=== PATIENT | female | born 1940 | race Caucasian/White ===

== ENCOUNTER 2016-12-11 17:52 | Emergency (ER) | payer MEDICARE, OTHER ==
--- NOTE | ~2016-12-11 | CR72 ---
[facility] A Service of [facility] & [facility] RADIOLOGY TEXT RESULTS PATIENT: ARCENIO MCKEON LOCATION: [facility] : 41 UNIT #: [id number] AGE: [address]: Jose Galeas MD SEX: F ORDER DR: [id number] [facility] [address] [place], [place] [address] [id number] MR#: [id number] Acc #: [id number] NAME: ARCENIO MCKEON. : 1940 SEX: F STUDY DATE/TIME: 12/11/2016 17:29 UNIT: [facility] ROOM: STUDY DESCRIPTION: CR Chest Single View Portable Attending Physician: Jose Galeas M.D. Ordering Physician: Jose Galeas M.D. Primary Care Physician: Onel Toro Jr., M.D. MEDICAL IMAGING REPORT This report is preliminary unless electronic signature is present EXAM Portable chest x-ray, 12/11/2016. HISTORY Chest pain, back pain, weakness, short of air, headache. Began today. Weakness. FINDINGS AP right anterior oblique view of the chest is presented. Comparison 02/18/2016. Study is somewhat limited secondary to the patient's very large body habitus. Marked degenerative changes in the bilateral shoulders. No acute-appearing bony abnormality. Stable cardiac enlargement. The patient's cardiac pacemaker is unchanged. The lungs are well inflated. Mild pulmonary vascular prominence suggesting vascular congestion. This is a new finding. There are some linear areas of scarring in the left mid lung zone. There is no clear indication of lilia pulmonary edema at this time. No indication of pneumonia, pleural effusion, pneumothorax or suspicious nodule. Partially visualized lap-band device grossly unchanged from prior studies given obliquity. Dictated by... Guilherme Anaya M.D. THIS IS AN ELECTRONICALLY VERIFIED REPORT Guilherme Anaya M.D. at 12/12/2016 2:18 PM MARCE/zunilda TD: 12/12/2016 10:03 JOB #: [id number] MEDICAL IMAGING REPORT Page 1 of 1 COPY
--- NOTE | ~2016-12-11 | EKG ---
PATIENT: ARCENIO MCKEON UNIT #: [id number] Ventricular Rate: 69 BPM Atrial Rate: 69 BPM P-R Interval: 222 ms QRS Duration: 122 ms Q-T Interval: 412 ms QTC Calculation(Bezet): 441 ms P York: 54 degrees Calculated R York: -46 degrees Calculated T York: 16 degrees Diagnosis Line: Atrial-paced rhythm with prolonged AV conduction Diagnosis Line: Left anterior fascicular block Baseline wander Diagnosis Line: Abnormal ECG Diagnosis Line: When compared with ECG of 18-FEB-2016 17:03, Diagnosis Line: QT has shortened Diagnosis Line: Confirmed by LUIS CHUA MD ([id number]) on 12/13/2016 Diagnosis Line: 9:14:42 AM INTERPRETING MD: TOMA BURRIS
[~2016-12-11 17:52] MED LIST: ACCUPRIL PO; ACCURETIC 10-121 TAB PO; ACETAMINOPHEN PO; ACTOS PO; ACTOS15 MG; ACTOS30 MG PO; ALLERGY25 MG PO; ALLOPURINOL300 MG PO; ALPRAZOLAM PO; ANAFRANIL50 MG PO; APAP325 M1 PO; ARICEPT PO; ASPIRIN EC81 M1 PO; ATARAX PO; ATENOLOL PO; ATIVAN PO; ATRAC-TAIN142 GM EXT; AUGMENTIN PO; BACITRACIN3.5 GM AD; BACLOFEN10 MG PO; BACTROBAN22 GM TP; BENADRYL25 M1 PO; BUMEX PO; CARVEDILOL3.125 MG PO; CECLOR PO; CLARITIN10 MG PO; CLEOCIN HCL300 M1 PO; CLOBEVATE45 GM TOP; COLACE PO; CORDARONE200 M1; CORDARONE200 M1 PO; COREG3.125 M1 PO; COREG3.125 MG; COUMADIN PO; COUMADIN2.5 MG PO; COUMADIN4 MG; COUMADIN4 MG PO; COUMADIN5 MG PO; CYANOCOBALAMI100 MCG PO; DESENEX TP; DESITIN DIAPER113 GM TOP; DETROL LA PO; DIFLUCAN200 MG PO; DIOVAN160 MG PO; DIOVAN320 MG PO; DITROPAN PO; DITROPAN5 MG PO; DOXYCYCLINE PO; DUONEB 2.5-0.5 M3 ML NEB; ENABLEX7.5 MG; ENABLEX7.5 MG PO; FERROUS SULFATE PO; FLORASTOR250 M1 PO; FOLIC ACID PO; FUROSEMIDE40 MG PO; GLIMEPIRIDE1 M1 PO; GLUCOTROL PO; HCTZ PO; HYDRALAZINE HCL50 MG PO; HYDROCHLOROTH12.5 M1 PO; HYDROCHLOROTH12.5 MG PO; KEFLEX PO; LASIX PO; LASIX20 MG PO; LEVAQUIN250 MG PO; LEVOCETIRIZINE D5 MG PO; LIPITOR20 MG DOB; LIPITOR20 MG PO; LISINOPRIL PO; LOTRIMIN30 GM TOP; LOTRISONE CREAM45 GM TOP; MELATONIN 5 MG1 EACH PO; MILK OF MAGNESIA PO; MOTION SICKNESS25 M4 PO; NEURONTIN PO; NEURONTIN100 MG PO; NORVASC PO; NORVASC10 MG PO; NYSTATIN1 EAC1 MC; OMEPRAZOLE MAGN20 MG PO; OMEPRAZOLE20 M2 PO; OMEPRAZOLE40 MG; OMEPRAZOLE40 MG PO; PATIENT'S PHARMACY; PERCOCET 7.5-31 EACH PO; PHENERGAN PO; PHOSLO667 MG PO; PIOGLITAZONE15 MG PO; POLYSACC IRON150 MG PO; PRILOSEC20 M1 PO; SERTRALINE HCL50 M1; SERTRALINE HCL50 M1 PO; SERTRALINE HCL50 MG PO; SIMVASTATIN20 MG PO; SKELAXIN PO; STOOL SOFTENER100 M1 PO; SYNTHROID PO; TRYPSIN COMPLEX60 GM TP; VICODIN PO; WARFARIN SODIU7.5 MG PO; WARFARIN SODIUM4 M1 PO; XARELTO15 MG PO; ZEMPLAR1 MCG; ZEMPLAR1 MCG PO; ZOCOR PO; ZOCOR20 MG PO; ZOLOFT PO; ZOLOFT50 MG PO; ZYLOPRIM PO; ZYLOPRIM100 MG; ZYLOPRIM100 MG DOB; ZYLOPRIM100 MG PO; [UNRECOGNIZED DRUG - OTHER]; [UNRECOGNIZED DRUG - OTHER] TP
[2016-12-11 17:55] LABS: BASOPHIL# 0.1 X10e3 (0-0.3); BASOPHIL% 0.8 % (0-2.5); DIFF IND YES; EOSINOPHIL# 0.4 X10e3 (0-0.7); EOSINOPHIL% 4.9 % (0.0-7.0); HEMATOCRIT 32.6 % (35.0-45.0); HEMOGLOBIN 10.6 gm/dL (12.0-16.0); LYMPHOCYTE# 1.5 X10e3 (1.0-3.5); LYMPHOCYTE% 20.1 % (17.0-45.0); MEAN CELL VOLUME 106.3 FL (83-96); MEAN CORPUSCULAR HEMOGLOBIN 34.6 PG (28-34); MEAN CORPUSCULAR HGB CONC 32.6 g/dL (30-36); MEAN PLATELET VOLUME 7.9 FL (6.5-11.5); MONOCYTE# 0.5 X10e3 (0-1.0); MONOCYTE% 6.6 % (3.0-12.0); NEUTROPHIL% 67.6 % (40-75); PLATELET COUNT 210 X10e3 (140-420); RED BLOOD COUNT 3.07 X10e (3.90-5.30); WHITE BLOOD COUNT 7.4 X10e3 (4.0-10.5)
[2016-12-11 17:58] LABS: POC - CKMB 1.6 ng/mL (0.0-7.9); POC - TROPONIN <0.05 ng/mL (<=0.05)
[2016-12-11 18:03] LABS: PROTHROMBIN TIME (PATIENT) 10.3 SECONDS (9.6-11.5)
[2016-12-11 18:10] LABS: ALBUMIN SERUM 2.8 g/dL (3.5-5.0); ALKALINE PHOSPHATASE 79 U/L (32-92); ALT (SGPT) 13 U/L (10-40); AST (SGOT) 20 U/L (10-42); BILIRUBIN,TOTAL 0.4 mg/dL (0.2-2.0); BLOOD UREA NITROGEN 49 mg/dL (9-23); BUN/CREATININE RATIO 23.33; CALCIUM SERUM 9.1 mg/dL (8.4-10.2); CARBON DIOXIDE 23 mmol/L (22-31); CHLORIDE 104 mmol/L (100-111); CREATININE SERUM 2.1 mg/dL (0.6-1.4); GLOM FILT RATE Estimated 24.4 mL/min (>60); GLUCOSE FASTING 152 mg/dL (70-110); POTASSIUM 4.8 mmol/L (3.5-5.1); PROTEIN TOTAL SERUM 7.1 g/dL (6.0-8.3); SODIUM 134 mmol/L (135-145)
[2016-12-11 18:12] LABS: BILIRUBIN, DIRECT <0.1 mg/dL (0.0-0.2); BILIRUBIN,INDIRECT 0.3 mg/dL (0.0-0.9)
[2016-12-11 18:17] LABS: ANISOCYTOSIS SL; PLATELET ESTIMATE NORMAL (NORMAL); POIKILOCYTOSIS SL
[2016-12-11 19:27] LABS: POC - CKMB 1.2 ng/mL (0.0-7.9); POC - TROPONIN <0.05 ng/mL (<=0.05)
== END 2016-12-11 21:17 | disposition home or self-care (01) ==
LOC: CED 17:52
PROVIDERS: Emergency Medicine
DX: R07.89 Other chest pain (principal); Z95.1 Presence of aortocoronary bypass graft; Z87.440 Personal history of urinary (tract) infections; Z88.2 Allergy status to sulfonamides
CPT/HCPCS: 36415; 71010; 80048; 80076; 82553; 84484; 85025; 85610; 93005; 99284

== ENCOUNTER 2017-01-30 14:07 | Inpatient (IN) | payer MEDICARE, OTHER ==
--- NOTE | ~2017-01-30 | EKG ---
PATIENT: ARCENIO MCKEON UNIT #: [id number] Ventricular Rate: 73 BPM Atrial Rate: 73 BPM P-R Interval: 190 ms QRS Duration: 112 ms Q-T Interval: 424 ms QTC Calculation(Bezet): 467 ms P Philo: 75 degrees Calculated R Philo: -56 degrees Calculated T Philo: 29 degrees Diagnosis Line: Sinus rhythm Baseline wander Diagnosis Line: Left anterior fascicular block Diagnosis Line: Minimal voltage criteria for LVH, may be normal Diagnosis Line: variant Diagnosis Line: Abnormal ECG Diagnosis Line: When compared with ECG of 11-DEC-2016 15:50, Diagnosis Line: No significant change was found Diagnosis Line: Confirmed by LUIS CHUA MD ([id number]) on 01/31/2017 Diagnosis Line: 10:01:55 AM INTERPRETING MD: TOMA BURRIS
--- NOTE | ~2017-01-30 | HP ---
Unit #: [id number] #: [id number] Patient: ARCENIO MCKEON [id number] [address] [place], [place] [address] [id number] I MR#: [id number] NAME: ARCENIO MCKEON. ROOM: 319 Age: 76 Sex: F Admission Date: 01/30/2017 : 1940 Attending Physician: Nury Chase M.D. Primary Care Physician: Onel Toro Jr., M.D. HISTORY AND PHYSICAL REVISED REPORT CHIEF COMPLAINT Possible UTI. HISTORY OF PRESENT ILLNESS The patient is a 76-year-old female with a past medical history of multiple medical problems including chronic kidney disease, hypertension, atrial fibrillation, chronic anticoagulation, hypothyroidism, diabetes, chronic anemia, sick sinus syndrome, chronic back pain, obstructive sleep apnea, immobility, GERD, anxiety, depression, dementia, and morbid obesity, who presented to the emergency department from the snf for evaluation of the above. History is obtained from chart review and discussion with ER staff due to the patient's altered mental status. Apparently, the patient was brought to the emergency department from the snf for altered mental status. The nurse practitioner that evaluated the patient today at the snf thought that the patient "wasn't herself" and wanted her evaluated. This is per ER discussion with EMS. Per snf documentation, she was unable to follow commands and noted to have difficulty with word finding. It is unclear what her baseline mental status is. She does have dementia. Upon arrival in the emergency department, temperature was 98, pulse 76, respirations 16, blood pressure 160/70, and oxygen saturation 99% on room air. Laboratory is notable for findings concerning for urinary tract infection. She was given Zosyn in the emergency department. A CT of the head showed nothing acute. Chest x-ray showed nothing acute. She is being admitted to [facility] for evaluation and further treatment. PAST MEDICAL HISTORY 1. Admission to [facility] February 18, 2016, for altered mental status secondary to a urinary tract infection with Klebsiella pneumoniae that was resistant to ampicillin but otherwise pansensitive. 2. Chronic kidney disease stage 3. The patient has seen Dr. Ortiz in the past. 3. Hypertension. 4. Atrial fibrillation, on chronic anticoagulation with Xarelto. 5. Hypothyroidism. 6. Diabetes. 7. Chronic anemia. Unit #: [id number] #: [id number] Patient: ARCENIO MCKEON 8. Sick sinus syndrome. 9. Chronic back pain. 10. Obstructive sleep apnea. 11. Immobility. 12. Gastroesophageal reflux disease. 13. Anxiety and depression. 14. Dementia. 15. Morbid obesity with a BMI of 53. PAST SURGICAL HISTORY 1. Failed Lap-Band surgery. 2. Cholecystectomy. 3. Pacemaker placement. 4. Cataract surgery. 5. Skin graft. SOCIAL HISTORY The patient is at a snf. Her code status is a Full Code per snf documentation. Per record review, there is no tobacco or alcohol use. FAMILY HISTORY Notable for hypertension, stroke, diabetes, and breast cancer. ALLERGIES Rocephin, sulfamethoxazole, and trimethoprim. HOME MEDICATIONS 1. Synthroid. 2. Clomipramine. 3. Coreg. 4. Zyloprim. 5. Xarelto. 6. Lorazepam. 7. Amiodarone. 8. Zemplar. 9. Ditropan. 10. Aricept. 11. Percocet. 12. Cyanocobalamin. 13. Tylenol. 14. Artificial Tears. 15. Vitamin C. 16. Colace. 17. DuoNebs. 18. Lasix. 19. Levocetirizine. 20. Melatonin. 21. Nystatin cream. 22. Omeprazole. 23. Pataday drops. 24. Iron. 25. Potassium. 26. Senna. 27. Benzonatate. 28. Tizanidine. 29. Ondansetron. 30. Hydralazine. Unit #: [id number] #: [id number] Patient: ARCENIO MCKEON Home medications will need to be reviewed and verified. REVIEW OF SYSTEMS A complete review of systems is unobtainable from the patient due to altered mental status. PHYSICAL EXAMINATION VITAL SIGNS: Temperature is 98, pulse 76, respirations 16, blood pressure 160/70, and oxygen saturation 99% on room air. GENERAL: Patient is a female who is awake, alert, and somewhat agitated. HEENT: Head is atraumatic. Mucous membranes are dry. NECK: Supple. Trachea is midline. CARDIOVASCULAR: Regular rate and rhythm. LUNGS: Clear to auscultation bilaterally with no increased work of breathing. ABDOMEN: Obese, soft, and nontender with bowel sounds present in all four quadrants. EXTREMITIES: Scattered contusions. No edema. NEUROLOGIC: Patient is moving all extremities. She does not follow commands. PSYCHIATRIC: Patient is agitated. SKIN: Scattered contusions. DIAGNOSTIC STUDIES LABORATORY: Complete blood count notable for MCV of 104.8. INR is 1. Ammonia level is less than 9. Urinalysis notable for 1+ leukocyte esterase, 2+ protein, 25-50 white blood cells, and 4+ bacteria with no squamous cells. Urine toxicology screen is positive for tricyclics. Comprehensive metabolic panel notable for glucose of 183, BUN and creatinine 32 and 1.4, respectively, and albumin is 3.2. Tylenol, salicylate, and alcohol levels are negative. IMAGING: CT of the head shows nothing acute. There is a left nasopharyngeal polyp. Chest x-ray shows nothing acute. CARDIOLOGY: EKG shows atrial paced rhythm with a rate of 73 beats per minute. ASSESSMENT The patient is a 76-year-old female with: 1. Altered mental status. 2. Urinary tract infection. Review of [facility] records shows that the patient had a urine culture from February 18, 2016, that grew greater than 100,000 Klebsiella that was resistant only to ampicillin. She had a urine culture on December 05, 2012, that grew greater than 100,000 Escherichia coli that was resistant to Bactrim, ampicillin, Levaquin, and tetracycline. She has also had enterococcus in the past on November 18, 2012. She received Zosyn in the emergency department. 3. Chronic kidney disease stage 3 with a creatinine of 2.1 on December 11, 2016. It is 1.4 today. She has seen Dr. Ortiz in the past. 4. Hypertension. 5. Atrial fibrillation, on chronic coagulation with Xarelto. 6. Hypothyroidism. 7. Diabetes. 8. Chronic anemia. 9. Sick sinus syndrome. Unit #: [id number] #: [id number] Patient: ARCENIO MCKEON 10. Chronic back pain. 11. Obstructive sleep apnea. 12. Immobility. 13. Gastroesophageal reflux disease. 14. Anxiety and depression. 15. Dementia. 16. Morbid obesity with a body mass index of 53 present on admission. 17. Left nasopharyngeal polyp noted on head CT. The patient will need ENT followup as an outpatient. PLAN 1. Admit for observation to intermediate level. 2. N.p.o. until speech evaluation. 3. Speech Therapy to evaluate and treat. 4. Normal saline at 75 mL/hour. 5. TSH, B12, and folate. 6. Neuro checks. 7. Fall precautions. 8. Bedrest. 9. Blood cultures x2. 10. Urine culture and sensitivity on urine in the lab. 11. Levaquin IV for urinary tract infection pending results of culture. 12. Hemoglobin A1c. 13. Low-dose sliding scale insulin with Accu-Cheks. 14. Supplemental oxygen. 15. Repeat labs in the morning. 16. Additional workup and consultants based on above. 17. Regarding code status, the patient is a Full Code. ORIGINAL JOB [id number] CORRECTIONS: CT of the head was negative. I spoke in error when I said that there was a left nasopharyngeal polyp. So please note that the CT of the head showed nothing acute. Additional, correction under assessment. There is no left nasopharyngeal polyp. The patient does not need to follow up ENT. That was an error." Dictated by Jeannie Ochoa/sahil TD: 01/30/2017 20:41 JOB #: [id number] [facility] Unit #: [id number] #: [id number] Patient: ARCENIO MCKEON HISTORY AND PHYSICAL Page 1 of 1 X Nury Chase MD HISTORY AND PHYSICAL
--- NOTE | ~2017-01-30 | XA166 ---
[facility] A Service of [facility] & [facility] RADIOLOGY TEXT RESULTS PATIENT: ARCENIO MCKEON LOCATION: [facility] 319-01 : 41 UNIT #: [id number] AGE: [address]: Cruzito Jarrett MD SEX: F ORDER DR: [id number] [facility] [address] [place], [place] [address] [id number] I MR#: [id number] Acc #: [id number] NAME: ARCENIO MCKEON. : 1940 SEX: F STUDY DATE/TIME: 01/31/2017 10:07 UNIT: A U ROOM: 319 STUDY DESCRIPTION: XA PICC Line Placement WO Port Attending Physician: Cruzito Jarrett M.D. Ordering Physician: Nury Chase M.D. Primary Care Physician: Onel Toro Jr., M.D. MEDICAL IMAGING REPORT This report is preliminary unless electronic signature is present EXAM Right-sided PICC line placement INDICATION Need for IV access in a patient with the history of encephalopathy. PROCEDURE The procedure was explained to the patient's petroleum products sales representative including risks, benefits, potential complications, and potential for alternative forms of treatment. Informed consent was obtained and prior to initiating the procedure, a formal timeout procedure was performed. Using all elements of maximal sterile barrier technique, including hand hygiene, caps, sterile gowns, gloves and masks, the right arm was prepped with 2% Chlorhexidine for cutaneous antisepsis and covered with a large sterile sheet. Real-time sterile ultrasound guidance was used to localize the right basilic vein which was found to be patent and compressible. A hard copy ultrasound image was obtained. After local anesthesia with 1% Xylocaine, the vein was punctured using real-time sterile ultrasound guidance and an 0.018 guidewire was advanced into the superior vena cava under fluoroscopic guidance. Sheath was advanced over the wire. The catheter was measured and trimmed and was advanced over the wire and positioned into the superior vena cava. Following placement of the catheter, it flushed and aspirated easily. Total fluoroscopy time was 0.2 minutes, AK was 3 mGy. Please note this exam was performed with conscious sedation due to this patient's severe agitation. She did receive conscious sedation consisting of 0.5 mg of Versed and 25 mcg of Fentanyl and continuous monitoring was provided for a total of 25 minutes by the IVR nurse. IMPRESSION Successful placement of a right-sided PICC line which terminates within the superior vena cava. This catheter is ready for immediate use. [facility] A Service of [facility] RADIOLOGY TEXT RESULTS PATIENT: ARCENIO MCKEON LOCATION: [facility] 319-01 : 41 UNIT #: [id number] AGE: [address]: Cruzito Jarrett MD SEX: F ORDER DR: Ultrasound and fluoroscopy were used during placement of the catheter and permanent images were saved. Dictated by... Carla Curtis M.D. THIS IS AN ELECTRONICALLY VERIFIED REPORT Carla Curtis M.D. at 02/01/2017 10:03 AM AFF/aa TD: 02/01/2017 08:45 JOB #: [id number] MEDICAL IMAGING REPORT Page 1 of 1 COPY
--- NOTE | ~2017-01-30 | CO ---
Unit #: [id number] #: [id number] Patient: ARCENIO MCKEON [id number] [address] [place], [place] [address] [id number] I MR#: [id number] NAME: ARCENIO MCKEON. ROOM: 319 Age: 76 Sex: F Admission Date: 02/02/2017 : 1940 Attending Physician: Cruzito Jarrett M.D. Primary Care Physician: Onel Toro Jr., M.D. CONSULTATION REPORT CHIEF COMPLAINT Urinary retention. CONSULTING PHYSICIAN Dr. Nury Chase HISTORY OF PRESENT ILLNESS The patient is a 76-year-old female with extensive multiple medical problems and is a long term patient. She has had a history of recurring urinary tract infection. She has an indwelling urethral catheter which has been in for quite some time. On questioning, probably some sort of catheter for six months to a year. She presented with confusion and mental status changes. She has been found to have an E. coli urinary tract infection. Catheter apparently was traumatically removed earlier today and the nursing staff was unable to place a catheter. I was called to assist with catheter placement. PAST MEDICAL HISTORY 1. Morbid obesity. 2. Chronic kidney disease. 3. Hypertension. 4. Atrial fibrillation. 5. Chronic anemia. 6. Sick sinus syndrome. 7. Immobility syndrome. 8. Obstructive sleep apnea. PAST SURGICAL HISTORY 1. Pacemaker. 2. Cholecystectomy. 3. Lap band. 4. Cataract surgery. 5. Skin graft. SOCIAL HISTORY snf patient. No tobacco. Negative for alcohol. FAMILY HISTORY Hypertension, stroke, diabetes, breast cancer. MEDICATIONS/ALLERGIES Documented in the chart. REVIEW OF SYSTEMS Unit #: [id number] #: [id number] Patient: ARCENIO MCKEON Twelve point review of systems was performed. It is positive for urinary incontinence, decreased mobility. PHYSICAL EXAMINATION GENERAL: Morbidly obese female in no acute distress. She is alert and oriented x4. Family members at the bedside. VITAL SIGNS: Temperature 97.8. HEENT: Normocephalic, atraumatic. NECK: Supple. No lymphadenopathy. CHEST: The patient is breathing comfortably. There is symmetric chest rise. ABDOMEN: Soft, nontender, nondistended. EXTREMITIES: There is 2+ bilateral lower extremity edema. EXAM: On exam, she has completely eroded urethra. I placed a 16 Welsh Lopez catheter. DIAGNOSTIC STUDIES LABORATORY: Creatinine 1.7. 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 The options for this are very limited. We can place a suprapubic tube but she will probably still leak and she is high risk for this surgery given her obesity and this will not reduce her risk of urinary tract infection. The other option would be to remove the catheter and let her leak into a diaper but there are concerns about her pressure ulcers and the status from this. She is not a candidate for more complex diversion surgery. We will treat her urinary tract infection and consider suprapubic tube in the future if she were medically cleared but, again, this will be a very high risk procedure with uncertain benefit. Dictated by... Wellington Jennings M.D. MEME/rufino TD: 02/03/2017 12:38 JOB #: [id number] CONSULTATION REPORT Page 1 of 1 X Wellington Jennings MD X CONSULTATION REPORT
--- NOTE | ~2017-01-30 | CO ---
Unit #: [id number] #: [id number] Patient: ARCENIO PAIZ [id number] [address] [place], [place] [address] [id number] I MR#: [id number] NAME: ARCENIO PAIZ. ROOM: 319 Age: 76 Sex: F Admission Date: 02/02/2017 : 1940 Attending Physician: Cruzito Jarrett M.D. Primary Care Physician: Onel Toro Jr., M.D. CONSULTATION REPORT CHIEF COMPLAINT Confusion. HISTORY OF PRESENT ILLNESS Ms. Paiz is a 76-year-old lady, with history of dementia, who was admitted for mental status change. Apparently, she is fully conversant at baseline, but was found to be poorly responsive, confused at the shelter. Her urinary tract infection has since been treated, but the patient continues to be confused, tremulous, and disoriented. She also appears to have some hallucination. REVIEW OF SYSTEMS GENERAL: Positive for overall decline. SKIN: Negative. HEENT: Negative. PULMONARY: Negative. CARDIOVASCULAR: Positive for irregular heart beat. GI: Negative. : Positive for urinary tract infection. MUSCULOSKELETAL: Positive for joint pain. NEUROLOGIC: Positive for confusion. PSYCHIATRIC: Positive for hallucination. PAST MEDICAL HISTORY Positive for dementia, atrial fibrillation, hypertension, chronic renal insufficiency, hypothyroidism, diabetes, chronic anemia, sick sinus syndrome status post pacemaker placement, chronic low back pain, morbid obesity, obstructive sleep apnea, anxiety, and depression. SOCIAL HISTORY Negative for tobacco, alcohol, or illicit drugs. FAMILY HISTORY Per son, it is positive for the patient's mother having a stroke. PHYSICAL EXAMINATION GENERAL: Upon examination, she is of anxious appearance. CARDIOVASCULAR: Her heart sounds are irregular. There are no carotid bruits. PULMONARY: Lungs taylor are clear. EXTREMITIES: There is mild peripheral edema. VITAL SIGNS: Blood pressure is 134/47, pulse is 141, respirations 20, temperature is 99.9. NEUROLOGIC: She is alert and oriented x1. Language fluency is intact. Unit #: [id number] #: [id number] Patient: ARCENIO PAIZ She does follow simple commands. Memory and attention span are impaired. Fund of knowledge is below average. Her visual taylor are full. There is no papilledema. Extraocular muscles are intact. Pupils are equal, round, and reactive to light. There is no facial weakness or numbness. Hearing to conversation speech is normal. Palate elevates symmetrically. Trapezius midline. There is no dysarthria or dysphasia. She has 4+ strength throughout. Muscle tone and bulk are normal. She does have whole body fast tremors. There are no sensory deficits. She is unable to perform any coordinated movements. Unable to ambulate and is areflexic throughout. IMAGING STUDIES I have personally reviewed her head CT and it shows mild diffuse atrophy and chronic small vessel ischemic disease, but no acute findings. ASSESSMENT AND PLAN In summary, Ms. Wright has had mental status changes in association with urinary tract infection. Her clinical picture is mostly consistent with a toxic metabolic encephalopathy; however, she does have a history of hypothyroidism and we will therefore check a TSH and free T4. We will also check B12 and folate levels. Psych evaluation should be considered to address the patient's psychosis. Further recommendations will be as per test results. Dictated by... Jeannie Curtis/nasir TD: 02/02/2017 14:47 JOB #: [id number] CONSULTATION REPORT Page 1 of 1 X Marielle Aburto MD CONSULTATION REPORT
--- NOTE | ~2017-01-30 | CR72 ---
[facility] A Service of [facility] & [facility] RADIOLOGY TEXT RESULTS PATIENT: ARCENIO MCKEON LOCATION: [facility] 319-01 : 41 UNIT #: [id number] AGE: [address]: Cruzito Jarrett MD SEX: F ORDER DR: [id number] [facility] [address] [place], [place] [address] [id number] E MR#: [id number] Acc #: [id number] NAME: ARCENIO MCKEON : 1940 SEX: F STUDY DATE/TIME: 01/30/2017 14:46 UNIT: RAGHU ROOM: STUDY DESCRIPTION: CR Chest Single View Portable Attending Physician: Pierre Nguyen D.O. Ordering Physician: Pierre Nguyen D.O. Primary Care Physician: Onel Toro Jr., M.D. MEDICAL IMAGING REPORT This report is preliminary unless electronic signature is present EXAM Portable chest 01/30 HISTORY Shortness of air today with mental status changes and UTI. TECHNIQUE AP portable view of the chest is compared with 12/11/2016. FINDINGS Heart remains enlarged. The lungs are clear. There is no pneumothorax. Left side triple lead pacer or defibrillator is present. There is severe degenerative disease in the shoulders. Patient has a gastric band. IMPRESSION Stable cardiomegaly. No active disease. Dictated by... Jose Fonseca Jr., M.D. THIS IS AN ELECTRONICALLY VERIFIED REPORT Jose Fonseca Jr., M.D. at 01/31/2017 8:25 AM STEVE/varinder TD: 01/30/2017 17:55 JOB #: [id number] MEDICAL IMAGING REPORT Page 1 of 1 COPY
--- NOTE | ~2017-01-30 | CT71 ---
[facility] A Service of [facility] RADIOLOGY TEXT RESULTS PATIENT: ARCENIO MCKEON LOCATION: [facility] 319 : 41 UNIT #: [id number] AGE: [address]: Nury Chase MD SEX: F ORDER DR: [id number] [facility] [address] [facility]. [place], [place] [address] [id number] MR#: [id number] #: [id number] NAME: ARCENIO MCKEON : 1940 SEX: F STUDY DATE/TIME: 01/30/2017 15:32 UNIT: RAGHU ROOM: STUDY DESCRIPTION: CT Head Wo Contrast Attending Physician: Pierre Nguyen D.O. Ordering Physician: Pierre Nguyen D.O. Primary Care Physician: Onel Toro Jr., M.D. MEDICAL IMAGING REPORT This report is preliminary unless electronic signature is present EXAM CT brain without contrast HISTORY Frontal headache today. Encephalopathy. TECHNIQUE This CT exam was performed with one or more of the following radiation dose reduction techniques: automatic exposure control, adjustment of mA and/or kV according to patient size, and iterative reconstruction. FINDINGS CT brain without contrast demonstrates no intracranial hemorrhage, mass or edema. Mild generalized cerebral cortical atrophy and mild chronic ischemic changes in the deep white matter bilaterally. No midline shift or ventricular dilatation or extraaxial fluid collection. Mild mucosal thickening in the partly visualized maxillary sinuses bilaterally. IMPRESSION 1. No acute findings. 2. Mild chronic ischemic changes in the deep white matter bilaterally and mild generalized cerebral cortical atrophy. Dictated by... Jose L Huerta M.D. THIS IS AN ELECTRONICALLY VERIFIED REPORT Jose L Huerta M.D. at 01/30/2017 11:28 PM MELE/evelia TD: 01/30/2017 18:34 JOB #: [id number] [facility] A Service [facility] RADIOLOGY TEXT RESULTS PATIENT: ARCENIO MCKEON LOCATION: [facility] 319- : 41 UNIT #: [id number] AGE: [address]: Nury Chase MD SEX: F ORDER DR: MEDICAL IMAGING REPORT Page 1 of 1 COPY
--- NOTE | ~2017-01-30 | HP ---
Unit #: [id number] #: [id number] Patient: ARCENIO MCKEON [id number] [address] [place], [place] [address] [id number] MR#: [id number] NAME: ARCENIO MCKEON ROOM: Age: 76 Sex: F Admission Date: 01/30/2017 : 1940 Attending Physician: Pierre Nguyen D.O. Primary Care Physician: Onel Toro Jr., M.D. HISTORY AND PHYSICAL CHIEF COMPLAINT Possible UTI. HISTORY OF PRESENT ILLNESS The patient is a 76-year-old female with a past medical history of multiple medical problems including chronic kidney disease, hypertension, atrial fibrillation, chronic anticoagulation, hypothyroidism, diabetes, chronic anemia, sick sinus syndrome, chronic back pain, obstructive sleep apnea, immobility, GERD, anxiety, depression, dementia, and morbid obesity, who presented to the emergency department from the senior living for evaluation of the above. History is obtained from chart review and discussion with ER staff due to the patient's altered mental status. Apparently, the patient was brought to the emergency department from the senior living for altered mental status. The nurse practitioner that evaluated the patient today at the senior living thought that the patient "wasn't herself" and wanted her evaluated. This is per ER discussion with EMS. Per senior living documentation, she was unable to follow commands and noted to have difficulty with word finding. It is unclear what her baseline mental status is. She does have dementia. Upon arrival in the emergency department, temperature was 98, pulse 76, respirations 16, blood pressure 160/70, and oxygen saturation 99% on room air. Laboratory is notable for findings concerning for urinary tract infection. She was given Zosyn in the emergency department. A CT of the head showed nothing acute. Chest x-ray showed nothing acute. She is being admitted to [facility] for evaluation and further treatment. PAST MEDICAL HISTORY 1. Admission to [facility] February 18, 2016, for altered mental status secondary to a urinary tract infection with Klebsiella pneumoniae that was resistant to ampicillin but otherwise pansensitive. 2. Chronic kidney disease stage 3. The patient has seen Dr. Ortiz in the past. 3. Hypertension. 4. Atrial fibrillation, on chronic anticoagulation with Xarelto. 5. Hypothyroidism. 6. Diabetes. 7. Chronic anemia. 8. Sick sinus syndrome. 9. Chronic back pain. Unit #: [id number] #: [id number] Patient: ARCENIO MCKEON 10. Obstructive sleep apnea. 11. Immobility. 12. Gastroesophageal reflux disease. 13. Anxiety and depression. 14. Dementia. 15. Morbid obesity with a BMI of 53. PAST SURGICAL HISTORY 1. Failed Lap-Band surgery. 2. Cholecystectomy. 3. Pacemaker placement. 4. Cataract surgery. 5. Skin graft. SOCIAL HISTORY The patient is at a senior living. Her code status is a Full Code per senior living documentation. Per record review, there is no tobacco or alcohol use. FAMILY HISTORY Notable for hypertension, stroke, diabetes, and breast cancer. ALLERGIES Rocephin, sulfamethoxazole, and trimethoprim. HOME MEDICATIONS 1. Synthroid. 2. Clomipramine. 3. Coreg. 4. Zyloprim. 5. Xarelto. 6. Lorazepam. 7. Amiodarone. 8. Zemplar. 9. Ditropan. 10. Aricept. 11. Percocet. 12. Cyanocobalamin. 13. Tylenol. 14. Artificial Tears. 15. Vitamin C. 16. Colace. 17. DuoNebs. 18. Lasix. 19. Levocetirizine. 20. Melatonin. 21. Nystatin cream. 22. Omeprazole. 23. Pataday drops. 24. Iron. 25. Potassium. 26. Senna. 27. Benzonatate. 28. Tizanidine. 29. Ondansetron. 30. Hydralazine. Home medications will need to be reviewed and verified. Unit #: [id number] #: [id number] Patient: ARCENIO MCKEON REVIEW OF SYSTEMS A complete review of systems is unobtainable from the patient due to altered mental status. PHYSICAL EXAMINATION VITAL SIGNS: Temperature is 98, pulse 76, respirations 16, blood pressure 160/70, and oxygen saturation 99% on room air. GENERAL: Patient is a female who is awake, alert, and somewhat agitated. HEENT: Head is atraumatic. Mucous membranes are dry. NECK: Supple. Trachea is midline. CARDIOVASCULAR: Regular rate and rhythm. LUNGS: Clear to auscultation bilaterally with no increased work of breathing. ABDOMEN: Obese, soft, and nontender with bowel sounds present in all four quadrants. EXTREMITIES: Scattered contusions. No edema. NEUROLOGIC: Patient is moving all extremities. She does not follow commands. PSYCHIATRIC: Patient is agitated. SKIN: Scattered contusions. DIAGNOSTIC STUDIES LABORATORY: Complete blood count notable for MCV of 104.8. INR is 1. Ammonia level is less than 9. Urinalysis notable for 1+ leukocyte esterase, 2+ protein, 25-50 white blood cells, and 4+ bacteria with no squamous cells. Urine toxicology screen is positive for tricyclics. Comprehensive metabolic panel notable for glucose of 183, BUN and creatinine 32 and 1.4, respectively, and albumin is 3.2. Tylenol, salicylate, and alcohol levels are negative. IMAGING: CT of the head shows nothing acute. There is a left nasopharyngeal polyp. Chest x-ray shows nothing acute. CARDIOLOGY: EKG shows atrial paced rhythm with a rate of 73 beats per minute. ASSESSMENT The patient is a 76-year-old female with: 1. Altered mental status. 2. Urinary tract infection. Review of [facility] records shows that the patient had a urine culture from February 18, 2016, that grew greater than 100,000 Klebsiella that was resistant only to ampicillin. She had a urine culture on December 05, 2012, that grew greater than 100,000 Escherichia coli that was resistant to Bactrim, ampicillin, Levaquin, and tetracycline. She has also had enterococcus in the past on November 18, 2012. She received Zosyn in the emergency department. 3. Chronic kidney disease stage 3 with a creatinine of 2.1 on December 11, 2016. It is 1.4 today. She has seen Dr. Ortiz in the past. 4. Hypertension. 5. Atrial fibrillation, on chronic coagulation with Xarelto. 6. Hypothyroidism. 7. Diabetes. 8. Chronic anemia. 9. Sick sinus syndrome. 10. Chronic back pain. 11. Obstructive sleep apnea. Unit #: [id number] #: [id number] Patient: ARCENIO MCKEON 12. Immobility. 13. Gastroesophageal reflux disease. 14. Anxiety and depression. 15. Dementia. 16. Morbid obesity with a body mass index of 53 present on admission. 17. Left nasopharyngeal polyp noted on head CT. The patient will need ENT followup as an outpatient. PLAN 1. Admit for observation to intermediate level. 2. N.p.o. until speech evaluation. 3. Speech Therapy to evaluate and treat. 4. Normal saline at 75 mL/hour. 5. TSH, B12, and folate. 6. Neuro checks. 7. Fall precautions. 8. Bedrest. 9. Blood cultures x2. 10. Urine culture and sensitivity on urine in the lab. 11. Levaquin IV for urinary tract infection pending results of culture. 12. Hemoglobin A1c. 13. Low-dose sliding scale insulin with Accu-Cheks. 14. Supplemental oxygen. 15. Repeat labs in the morning. 16. Additional workup and consultants based on above. 17. Regarding code status, the patient is a Full Code. 1. Dictated by Jeannie Ochoa/sahil TD: 01/30/2017 19:59 JOB #: [id number] HISTORY AND PHYSICAL Page 1 of 1 X Nury Chase MD X HISTORY AND PHYSICAL
--- NOTE | ~2017-01-30 | BMI ---
[facility] Nutrition Therapy DATE: 01/31/17 Patient: ARCENIO Torres LINDA Physician: FRANCIE Address: [facility] Room/Bed: [address] [place] [address], Zip: [place] [address] Admit Date: 01/30/17 Date of : 41 Height: 5 2 Weight: 293 133.3 HIGH BMI NOTE: ANTHROPOMETRICS: HT: 62" WT: 133.3 KG BMI: 53.7 INTERVENTION: 1. NPO RECOMMENDATIONS: 1. ONCE MEDICALLY FEASIBLE, ADVNACE THE PT TO A HEART HEALTHY DIET IN ORDER TO PROMOTE GRADUAL WEIGHT LOSS TOWARDS A HEALTHY BMI. Respectfully, SHERLYN MURRAY RD, LD Food and Nutritional Services [facility] cc: client file
--- NOTE | ~2017-01-30 | DS ---
Unit #: [id number] #: [id number] Patient: ARCENIO MCKEON [id number] [address] [place], [place] [address] [id number] I MR#: [id number] NAME: ARCENIO MCKEON. ROOM: 319 Age: 76 Sex: F Admission Date: 01/30/2017 : 1940 Discharge Date: 02/05/2017 Attending Physician: Cruzito Jarrett M.D. Primary Care Physician: Onel Toro Jr., M.D. DISCHARGE SUMMARY ADMITTING DIAGNOSES 1. Urinary tract infection. 2. Altered mental status. FURTHER DIAGNOSES 1. Urinary tract infection with Escherichia coli. 2. Chronic kidney disease. 3. Hypertension. 4. Atrial fibrillation on chronic anticoagulation. 5. Hypothyroidism. 6. Diabetes. 7. Chronic anemia. 8. Sick sinus syndrome. 9. Chronic back pain. 10. Morbid obesity. 11. Obstructive sleep apnea. 12. Chronic immobility. 13. Gastroesophageal reflux disease. 14. Anxiety. 15. Depression. 16. Dementia. CONSULTANTS 1. Marielle Aburto M.D. 2. Wellington Jennings M.D. HISTORY OF PRESENTING ILLNESS The patient is a 76-year-old lady, who is a long term resident with multiple medical problems including chronic kidney disease, hypertension, atrial fibrillation on anticoagulation, hypothyroidism, diabetes, sick sinus syndrome who presented to the emergency room mainly because of altered mental status and possibly urinary tract infection. Her urine cultures were sent. Urine cultures came back positive for E. coli and the sensitivities were reviewed. With the concern for previous ESBL UTI, she was started on meropenem. In the hospital course, neurology was consulted for altered mental status and neurology thought it was secondary to toxic metabolic encephalopathy secondary to urinary tract infection and recommended no further intervention. Her CT of the head was negative for any acute changes. Urology was consulted as the Lopez came out and they recommended due to her multiple medical issues it is better to hold off any Lopez placement at this point. She is doing clinically better. I called the micro lab. Her urines were sensitive to quinolones. Will switch her to quinolones and will discharge her to the long term today. I spoke with patient and she feels better. She wants to go to the nursing Unit #: [id number] #: [id number] Patient: ARCENIO MCKEON home. PHYSICAL EXAMINATION On the day of the discharge, her physical examination: VITAL SIGNS: Temperature 98.8, pulse rate 70, respirations 18, blood pressure 148/45. GENERAL: Patient is alert and oriented x3, lying in the bed, morbidly obese, no acute distress. HEENT: Normocephalic and atraumatic. No icterus. PERRLA. Extraocular muscles intact. NECK: Supple. No JVD. HEART: S1, S2. Regular rate and rhythm. ABDOMEN: Soft, nontender. EXTREMITIES: Chronic mild edema. Normal peripheral pulses. DISCHARGE MEDICATIONS 1. Levaquin 750 mg p.o. q.48 hours for three more doses. 2. Ipratropium albuterol one nebulization q.4 p.r.n. for cough. 3. Amiodarone 200 mg daily. 4. Tylenol p.r.n. 5. Pataday 2.5 mL drops as needed for allergic conjunctivitis. 6. Xarelto 15 mg daily. 7. Clomipramine 50 mg at bedtime. 8. Zofran one tab p.o. q.8 hours p.r.n. nausea and vomiting . 9. Nystatin topically to be applied. 10. Benzonatate one cap q.8 hours p.r.n. for cough. 11. Lorazepam 0.25 mg twice a day. Kindly note, she was on it in the past. We are not giving any new prescription and she did not receive any lorazepam in the hospital course. 12. Coreg 3.125 mg twice a day. Hold for systolic blood pressures less than 100 and heart rates less than 60. 13. Colace 100 mg daily. 14. Senna 8.6/50 mg p.o. daily. 15. Aricept 10 mg daily. 16. Artificial Tears. 17. Ditropan 5 mg daily. 18. Hydralazine 25 mg three times a day. 19. Iron polysaccharides one capsule p.o. twice daily. 20. Allopurinol 100 mg twice a day. 21. Melatonin one tablet at bedtime as required. 22. Zemplar 1 mcg p.o. daily. 23. Omeprazole 20 mg daily. 24. KCl one capsule p.o. daily. 25. Levocetirizine 5 mg p.o. p.r.n. for itching. 26. Tizanidine one tab p.o. p.r.n. for muscle spasms. 27. Synthroid 50 mcg daily. 28. Ascorbic acid 500 mg p.o. daily. 29. Cyanocobalamin 100 mcg p.o. daily. FOLLOWUP She is instructed to follow with her primary care in one to two weeks. Total time spent in her discharge, 35 minutes. Dictated by... Unit #: [id number] #: [id number] Patient: ARCENIO MCKEON M.D. PS/yoseph TD: 02/05/2017 12:44 JOB #: [id number] DISCHARGE SUMMARY Page 1 of 1 X X DISCHARGE SUMMARY
[2017-01-30] MEDS ORDERED: ACETAMINOPHEN325 MG PO (14:40)
[2017-01-30] MEDS ORDERED: ARTIFICIAL TEAR15 M9 OD (14:43)
[2017-01-30] MEDS ORDERED: VITAMIN C500 MG PO (14:43)
[2017-01-30] MEDS ORDERED: DOCUSATE SODIU100 MG PO (14:44)
[2017-01-30] MEDS ORDERED: IPRAT-ALBUT 0.5-3 ML INH (14:46)
[2017-01-30] MEDS ORDERED: LASIX PO (14:46)
[2017-01-30] MEDS ORDERED: LEVOCETIRIZINE D5 MG PO (14:47)
[2017-01-30] MEDS ORDERED: MELATONIN3 MG PO (14:48)
[2017-01-30] MEDS ORDERED: OMEPRAZOLE20 M2 PO (14:49)
[2017-01-30] MEDS ORDERED: NYSTATIN1 EAC1 TOP (14:49)
[2017-01-30] MEDS ORDERED: PATADAY2.5 ML OU (14:50)
[2017-01-30] MEDS ORDERED: POLYSACC IRON150 MG PO (14:51)
[2017-01-30] MEDS ORDERED: KLOR-CON SPRIN10 MEQ PO (14:52)
[2017-01-30] MEDS ORDERED: SENNOSIDES-DOC1 EACH PO (14:53)
[2017-01-30] MEDS ORDERED: TIZANIDINE HCL4 M1 PO (14:55)
[2017-01-30] MEDS ORDERED: BENZONATATE200 M1 PO (14:55)
[2017-01-30] MEDS ORDERED: ONDANSETRON HCL4 M1 PO (14:56)
[2017-01-30 14:58] LABS: BASOPHIL# 0.1 X10e3 (0-0.3); BASOPHIL% 0.7 % (0-2.5); DIFF IND NO; EOSINOPHIL# 0.2 X10e3 (0-0.7); EOSINOPHIL% 2.3 % (0.0-7.0); HEMATOCRIT 38.5 % (35.0-45.0); HEMOGLOBIN 12.8 gm/dL (12.0-16.0); LYMPHOCYTE# 1.2 X10e3 (1.0-3.5); LYMPHOCYTE% 14.5 % (17.0-45.0); MEAN CELL VOLUME 104.8 FL (83-96); MEAN CORPUSCULAR HGB CONC 33.4 g/dL (30-36); MEAN PLATELET VOLUME 8.3 FL (6.5-11.5); MONOCYTE# 0.4 X10e3 (0-1.0); MONOCYTE% 4.2 % (3.0-12.0); NEUTROPHIL# 6.6 X10e3 (1.5-7.1); NEUTROPHIL% 78.3 % (40-75); PLATELET COUNT 240 X10e3 (140-420); RED BLOOD COUNT 3.67 X10e (3.90-5.30); RED CELL DISTRIBUTION WIDTH 14.6 % (11.0-15.5); WHITE BLOOD COUNT 8.5 X10e3 (4.0-10.5)
[2017-01-30] MEDS ORDERED: HYDRALAZINE HCL25 MG PO (15:08)
[2017-01-30 15:20] LABS: PARTIAL THROMBOPLASTIN TIME 25.6 SECONDS (23.5-31.3); PROTHROMBIN TIME (PATIENT) 10.8 SECONDS (9.6-11.5)
[2017-01-30 17:50] LABS: URINE SOURCE CLEAN CATCH
[2017-01-30 18:02] LABS: URINE APPEARANCE CLOUDY; URINE BILIRUBIN NEG (NEG); URINE BLOOD NEG (NEG); URINE COLOR YELLOW; URINE GLUCOSE NEG (NEG); URINE KETONE NEG (NEG); URINE LEUKOCYTE ESTERASE 1+ (NEG); URINE NITRATE NEG (NEG); URINE PH 5.5 (5-8); URINE PROTEIN 2+ (NEG); URINE SPECIFIC GRAVITY 1.013 (1.003-1.035); URINE UROBILINOGEN 0.2 MG/DL (NEG)
[2017-01-30 18:06] LABS: CULTURE INDICATED? YES; URBCS1 AUWI 0-2 /[HPF] (0-2); URINE BACTERIA AUWI 4+ (NEGATIVE); URINE SQUAMOUS EPITHELIAL CELL NONE SEEN /[HPF]; UWBCS1 AUWI 25-50 (0-5)
[2017-01-30 18:11] LABS: U HYALINE CASTS AUWI 0-2 /[LPF]
[2017-01-30 18:15] LABS: AMPHETAMINE NEG (NEG); BARBITURATES NEG (NEG); BENZODIAZEPINES NEG (NEG); COCAINE NEG (NEG); MARIJUANA NEG (NEG); OPIATES NEG (NEG); TRICYCLIC ANTIDEPRESSANTS POS (NEG); U METHADONE NEG (NEG)
[2017-01-30 18:38] LABS: ALBUMIN SERUM 3.2 g/dL (3.5-5.0); ALKALINE PHOSPHATASE 85 U/L (32-92); ALT (SGPT) 21 U/L (10-40); AST (SGOT) 32 U/L (10-42); BILIRUBIN, DIRECT 0.1 mg/dL (0.0-0.2); BILIRUBIN,INDIRECT 0.4 mg/dL (0.0-0.9); BILIRUBIN,TOTAL 0.5 mg/dL (0.2-2.0); BLOOD UREA NITROGEN 32 mg/dL (9-23); BUN/CREATININE RATIO 22.85; CALCIUM SERUM 9.8 mg/dL (8.4-10.2); CARBON DIOXIDE 22 mmol/L (22-31); CHLORIDE 103 mmol/L (100-111); CREATININE SERUM 1.4 mg/dL (0.6-1.4); GLOM FILT RATE Estimated 36.7 mL/min (>60); GLUCOSE FASTING 183 mg/dL (70-110); POTASSIUM 4.4 mmol/L (3.5-5.1); PROTEIN TOTAL SERUM 7.8 g/dL (6.0-8.3); SALICYLATE <4.0 mg/dL; SODIUM 135 mmol/L (135-145)
[2017-01-30 18:42] LABS: ACETAMINOPHEN <10 ug/mL; ALCOHOL BLOOD <5 mg/dL (0)
[2017-01-30 20:16] LABS: FOLATE (FOLIC ACID) >23.6 ng/mL (>5.8)
[2017-01-31 08:41] LABS: HEMATOCRIT 34.9 % (35.0-45.0); HEMOGLOBIN 11.5 gm/dL (12.0-16.0); MEAN CELL VOLUME 103.8 FL (83-96); MEAN CORPUSCULAR HEMOGLOBIN 34.3 PG (28-34); MEAN PLATELET VOLUME 7.9 FL (6.5-11.5); RED BLOOD COUNT 3.36 X10e (3.90-5.30); RED CELL DISTRIBUTION WIDTH 14.5 % (11.0-15.5); WHITE BLOOD COUNT 12.1 X10e3 (4.0-10.5)
[2017-01-31 09:19] LABS: BILIRUBIN,TOTAL 0.5 mg/dL (0.2-2.0); CALCIUM SERUM 9.6 mg/dL (8.4-10.2); CREATININE SERUM 1.5 mg/dL (0.6-1.4); GLOM FILT RATE Estimated 33.7 mL/min (>60); MAGNESIUM 1.2 mg/dL (1.6-3.0); PHOSPHOROUS 2.8 mg/dL (2.5-4.6); PROTEIN TOTAL SERUM 7.5 g/dL (6.0-8.3)
[2017-02-01 08:30] LABS: HEMATOCRIT 34.3 % (35.0-45.0); MEAN CELL VOLUME 105.9 FL (83-96); MEAN CORPUSCULAR HEMOGLOBIN 34.1 PG (28-34); MEAN CORPUSCULAR HGB CONC 32.2 g/dL (30-36); MEAN PLATELET VOLUME 7.7 FL (6.5-11.5); RED BLOOD COUNT 3.24 X10e (3.90-5.30); RED CELL DISTRIBUTION WIDTH 14.5 % (11.0-15.5); WHITE BLOOD COUNT 14.9 X10e3 (4.0-10.5)
[2017-02-01 09:10] LABS: CREATININE SERUM 1.7 mg/dL (0.6-1.4); POTASSIUM 3.8 mmol/L (3.5-5.1)
[2017-02-01 20:07] LABS: THYROID STIMULATING HORMONE 2.52 uIU/ml (0.34-5.60)
[2017-02-01 20:14] LABS: FREE THYROXIN (T4) 1.34 ng/dL (0.58-1.64)
[2017-02-01 20:26] LABS: FOLATE (FOLIC ACID) >23.6 ng/mL (>5.8)
[2017-02-02 05:50] LABS: HEMATOCRIT 31.7 % (35.0-45.0); HEMOGLOBIN 10.3 gm/dL (12.0-16.0); MEAN CELL VOLUME 106.1 FL (83-96); MEAN CORPUSCULAR HEMOGLOBIN 34.6 PG (28-34); MEAN CORPUSCULAR HGB CONC 32.6 g/dL (30-36); MEAN PLATELET VOLUME 8.2 FL (6.5-11.5); RED BLOOD COUNT 2.99 X10e (3.90-5.30); WHITE BLOOD COUNT 12.2 X10e3 (4.0-10.5)
[2017-02-02 06:18] LABS: CALCIUM SERUM 8.8 mg/dL (8.4-10.2); CREATININE SERUM 1.5 mg/dL (0.6-1.4); GLOM FILT RATE Estimated 33.7 mL/min (>60); POTASSIUM 3.6 mmol/L (3.5-5.1)
[2017-02-03 06:17] LABS: HEMATOCRIT 28.1 % (35.0-45.0); HEMOGLOBIN 9.3 gm/dL (12.0-16.0); MEAN CELL VOLUME 105.2 FL (83-96); MEAN CORPUSCULAR HEMOGLOBIN 34.8 PG (28-34); MEAN PLATELET VOLUME 7.9 FL (6.5-11.5); RED BLOOD COUNT 2.67 X10e (3.90-5.30); RED CELL DISTRIBUTION WIDTH 14.8 % (11.0-15.5)
[2017-02-03 07:05] LABS: BUN/CREATININE RATIO 21.76; CALCIUM SERUM 8.2 mg/dL (8.4-10.2); CREATININE SERUM 1.7 mg/dL (0.6-1.4); MAGNESIUM 1.3 mg/dL (1.6-3.0); PHOSPHOROUS 1.8 mg/dL (2.5-4.6); POTASSIUM 3.4 mmol/L (3.5-5.1)
[2017-02-04 13:18] LABS: CALCIUM SERUM 7.8 mg/dL (8.4-10.2); CREATININE SERUM 1.8 mg/dL (0.6-1.4); GLOM FILT RATE Estimated 27.1 mL/min (>60); MAGNESIUM 1.2 mg/dL (1.6-3.0); POTASSIUM 3.2 mmol/L (3.5-5.1)
[2017-02-05 09:43] LABS: BUN/CREATININE RATIO 21.17; CALCIUM SERUM 7.9 mg/dL (8.4-10.2); CREATININE SERUM 1.7 mg/dL (0.6-1.4); MAGNESIUM 1.8 mg/dL (1.6-3.0); POTASSIUM 3.8 mmol/L (3.5-5.1)
== END 2017-02-05 18:58 | DRG 871 ==
LOC: CED 14:07 → C3A PCU 19:10 → CED 19:10 → C3A PCU 19:24
PROVIDERS: Emergency Medicine; Family Medicine; Internal Medicine; Specialist
PROC: 02HV33Z Insertion of Infusion Device into Superior Vena Cava, Percutaneous Approach (ICD-10-PCS; principal; 2017-02-02)
PROC: B548ZZA Ultrasonography of Superior Vena Cava, Guidance (ICD-10-PCS; 2017-02-02)
DX: A41.9 Sepsis, unspecified organism (principal); G92 Toxic encephalopathy; N17.9 Acute kidney failure, unspecified; E11.22 Type 2 diabetes mellitus with diabetic chronic kidney disease; I49.5 Sick sinus syndrome; F03.90 Unspecified dementia, unspecified severity, without behavioral disturbance, psychotic disturbance, mood disturbance, and anxiety; F05 Delirium due to known physiological condition; N39.0 Urinary tract infection, site not specified; Z68.43 Body mass index [BMI] 50.0-59.9, adult; B96.20 Unspecified Escherichia coli [E. coli] as the cause of diseases classified elsewhere; I12.9 Hypertensive chronic kidney disease with stage 1 through stage 4 chronic kidney disease, or unspecified chronic kidney disease; N18.3 Chronic kidney disease, stage 3 (moderate); I48.91 Unspecified atrial fibrillation; Z79.01 Long term (current) use of anticoagulants; E03.9 Hypothyroidism, unspecified; D53.9 Nutritional anemia, unspecified; G89.29 Other chronic pain; M54.9 Dorsalgia, unspecified; E66.01 Morbid (severe) obesity due to excess calories; M62.3 Immobility syndrome (paraplegic); K21.9 Gastro-esophageal reflux disease without esophagitis; F41.9 Anxiety disorder, unspecified; F32.9 Major depressive disorder, single episode, unspecified; G47.33 Obstructive sleep apnea (adult) (pediatric); N36.8 Other specified disorders of urethra; R32 Unspecified urinary incontinence; E87.6 Hypokalemia; E83.42 Hypomagnesemia; Z95.0 Presence of cardiac pacemaker; Z90.49 Acquired absence of other specified parts of digestive tract; J33.0 Polyp of nasal cavity; Z87.440 Personal history of urinary (tract) infections; Z88.2 Allergy status to sulfonamides; Z88.1 Allergy status to other antibiotic agents
CPT/HCPCS: 36415; 51702; 70450; 71010; 76937; 77001; 80048; 80053; 80076; 80307; 81003; 82140; 82607; 82746; 82947; 83036; 83605; 83735; 84100; 84439; 84443; 85025; 85027; 85610; 85730; 86618; 87040; 87086; 87088; 87186; 92526; 92610; 93005; 94760; 96365; 99285; C1751; C9113; G0480; G8996-GN; G8997-GN; G8998-GN; J0360; J1650; J1815; J1956; J2060; J2185; J2250; J2543; J3010; J3475

== ENCOUNTER 2017-03-12 17:41 | Observation (INO) | payer MEDICARE, OTHER ==
--- NOTE | ~2017-03-12 | CR72 ---
[facility] A Service of [facility] RADIOLOGY TEXT RESULTS PATIENT: ARCENIO MCKEON LOCATION: [facility] 550-01 : 41 UNIT #: [id number] AGE: [address]: Meredith Louise MD SEX: F ORDER DR: [id number] [facility] [address] [facility] [place], [place] [address] [id number] I MR#: [id number] #: [id number] NAME: ARCENIO MCKEON. : 1940 SEX: F STUDY DATE/TIME: 03/12/2017 22:04 UNIT: [facility] ROOM: [facility] STUDY DESCRIPTION: CR Chest Single View Portable Attending Physician: Nicholas Gonzalez M.D. Ordering Physician: Ed Miquel Montaño M.D. Primary Care Physician: Onel Toro Jr., M.D. MEDICAL IMAGING REPORT This report is preliminary unless electronic signature is present EXAM AP portable chest, 03/12/2017 HISTORY Chest pain today. COMPARISON AP portable chest 01/30/2017 FINDINGS Study is attenuated by body habitus. The patient is rotated toward the left. Allowing for the heart size is probably stable. Gastric band device and pacemaker device are in place. No definite acute airspace disease is seen. No pleural effusion or pneumothorax is identified. IMPRESSION No acute chest findings or significant change compared to the 01/30/2017 examination. Dictated by... Kristina Parson M.D. THIS IS AN ELECTRONICALLY VERIFIED REPORT Kristina Parson M.D. at 03/13/2017 10:40 AM PAOLA/roman TD: 03/13/2017 04:57 JOB #: [id number] MEDICAL IMAGING REPORT Page 1 of 1 COPY
--- NOTE | ~2017-03-12 | BMI ---
[facility] Nutrition Therapy DATE: 03/13/17 Patient: ARCENIO MCKEON Physician: CARSON Address: [facility] Room/Bed: [address] [place] [address], Zip: [place] [address] Admit Date: 03/12/17 Date of : [birth year] Height: 5 2 Weight: 293 133 HIGH BMI NOTE: DX: 76 y/o female admitted for CP. ANTHROPOMETRICS: ht: 5'2" wt: 293# (133 kg) BMI: 54 DIET: NPO INTERVENTION: 1. NPO RECOMMENDATIONS: 1. Once medically feasible, advance diet to healthy heart diet + consistent carbohydrate diet to promote gradual weight loss towards a healthy BMI (19.0-25.0) or +/-10% IBW. RD will f/u per protocol. Respectfully, LOGAN REYNOLDS, internal communications writer Yudy Lopez MS, RD, LD Food and Nutritional Services [facility] cc: client file
--- NOTE | ~2017-03-12 | HP ---
Unit #: [id number] #: [id number] Patient: ARCENIO MCKEON [id number] [facility]. [address] [place], [place] [address] [id number] I MR#: [id number] NAME: ARCENIO MCKEON. ROOM: 550 Age: 76 Sex: F Admission Date: 03/12/2017 : 1940 Attending Physician: Meredith Louise M.D. Primary Care Physician: Onel Toro Jr., M.D. HISTORY AND PHYSICAL HISTORY OF PRESENT ILLNESS This is a 76-year-old female, well known to Dr. Louise, with a past medical history of atrial fibrillation, congestive heart failure, chronic obstructive pulmonary disease, hypertension, type 2 diabetes, sick sinus syndrome, morbid obesity with a BMI of 56, gastroesophageal reflux disease, anxiety, sleep apnea and a history of PE and anemia. She had a two-dimensional echo in 2011 with an ejection fraction of 55%-60% and mild MR and TR. She had a pacemaker placed in 2009 that is Biometric. Catheterization in 2006 showed normal coronaries. She presented to the emergency room with complaints of burning chest pain in the left chest that radiated to her left arm. She was resting when this occurred. She reports that the pain lasted approximately 30 minutes and resolved without treatment. She did not have any nausea or vomiting. She did not have any jaw pain and denied palpitations, dizziness and syncope. She does complain of shortness of air with exertion, but reports that this is normal for her. She is bedridden and unable to ambulate at all. Exertion for her consists of rolling in the bed or sitting up, which does cause shortness of air. However, again, this is typical for her. No swelling of the legs. No cough. No other complaints. In the emergency room her temperature was 97.0, respiratory rate 18, heart rate 76, blood pressure 156/101 and O2 98% on room air. Her initial troponin was less than 0.03. Her EKG as nonspecific. She was admitted for observation with a possible stress test in the morning. PAST MEDICAL HISTORY 1. Atrial fibrillation. She is currently taking Xarelto. 2. Congestive heart failure. A two-dimensional echo in 2011 showed an ejection fraction of 55%-60% with mild MR and TR. 3. Chronic obstructive pulmonary disease. 4. Hypertension. 5. Type 2 diabetes. 6. Sick sinus syndrome. 7. Morbid obesity with a BMI of 56. 8. Gastroesophageal reflux disease. 9. Anxiety. 10. Sleep apnea 11. Anemia. Current hemoglobin 11.7. 12. History of PE. PAST SURGICAL HISTORY 1. Failed back surgery. 2. Cholecystectomy. 3. Pacemaker placement in 2009, Biotronik. 4. Cataract surgery. Unit #: [id number] #: [id number] Patient: ARCENIO MCKEON 5. Skin graft. SOCIAL HISTORY The patient lives in a senior care. She is a full code per senior care documentation. Denies tobacco or alcohol use. FAMILY HISTORY Hypertension, stroke, diabetes and breast cancer. ALLERGIES Trimethoprim, ceftriaxone and sulfa drugs. CURRENT MEDICATIONS 1. Synthroid 50 mcg p.o. daily. 2. Anafranil 50 mg p.o. at nighttime. 3. Coreg 3.125 mg p.o. b.i.d. 4. Zyloprim 100 mg p.o. daily. 5. Xarelto 50 mg p.o. daily. 6. Lorazepam 0.25 mg p.o. b.i.d. 7. Cordarone 200 mg p.o. daily. 8. Zemplar 1 mcg p.o. daily. 9. Ditropan 5 mg p.o. daily. 10. Aricept 10 mg p.o. daily. 11. Percocet 7.5/325 mg p.o. q.4 h. p.r.n. pain. 12. B12 100 mcg p.o. daily. 13. Tylenol 650 mg p.o. q.4 h. p.r.n. pain. 14. Artificial Tears 1 drop per eye q.12 h. 15. Vitamin C 500 mg p.o. daily. 16. Colace 100 mg p.o. daily. 17. Ipratropium/albuterol 0.5/3 mg per 3 ml, 1 nebulizer inhaled q.4 h. 18. Lasix 10 mg p.o. daily. 19. Levocetirizine dihydrochloride 5 mg p.o. daily. 20. Melatonin 1 tablet p.o. at nighttime. 21. Nystatin chloride q. shift. 22. Omeprazole 20 mg p.o. daily. 23. Pataday 2.5 ml per eye daily. 24. Polycycline iron 150, 1 cap p.o. b.i.d. 25. Klor-Con 1 cap p.o. daily. 26. Fenofibrate/docusate 8.6/50 mg p.o. daily. 27. Benzonatate 1 cap p.o. q.8 h. p.r.n. cough. 28. Tizanidine 1 tablet p.o. daily. 29. Ondansetron 1 tablet p.o. q.8 h. p.r.n. nausea/vomiting. 30. Hydralazine 25 mg p.o. t.i.d. REVIEW OF SYSTEMS Ten point review of systems negative except for details noted in the history of present illness. PHYSICAL EXAMINATION GENERAL: This is a 76-year-old female with morbid obesity, alert and oriented, in no acute distress. VITALS: Blood pressure 133/46, heart rate 81, temperature 98.4, respiratory rate 92% on 3 liters. SKIN: Warm and dry. NECK: Supple. No jugular venous distension. No hepatojugular reflux. Normal carotid upstrokes. No carotid bruits auscultated. LUNGS: Clear to auscultation bilaterally. Unit #: [id number] #: [id number] Patient: ARCENIO MCKEON HEART: S1 and S2. Regular rate and rhythm. No murmurs, gallop or rub. ABDOMEN: Bowel sounds positive in all quadrants. No abdominal tenderness to palpation. No CVA tenderness or flank pain. EXTREMITIES: No pitting edema appreciated in the lower extremities. Positive pedal pulses. Capillary refill less than 3 seconds. DIAGNOSTIC STUDIES LABORATORY: Hemoglobin 11.7, hematocrit 34, white blood cell count 9.4, platelets 271, sodium 133, potassium 4.2, chloride 99, CO2 26, BUN 31, creatinine 1.8, glucose 161, troponin less than 0.03. This is unchanged since initial evaluation. ASSESSMENT 1. Chest pain. EKG is nonspecific. Cardiac enzymes all have returned negative. She reports that the chest pain has resolved. Currently on Xarelto. 2. Congestive heart failure. Ejection fraction 55%-60%. 3. Chronic obstructive pulmonary disease. 4. Hypertension. 5. Type 2 diabetes. 6. Sick sinus syndrome. 7. Morbid obesity, BMI 56. 8. Gastroesophageal reflux disease. 9. Anxiety. 10. Sleep apnea. 11. Anemia. 12. History of PE. PLAN The patient presented to the emergency room with complaints of chest pain. However, she reports that upon arriving to the emergency room her chest pain had resolved. She was admitted for further evaluation of chest pain. The patient was recommended for a stress test. However, due to her morbid obesity she was unable to have this completed and was returned to her room with a plan to manage medically and follow up with Dr. Louise in the office in August. Dictated by Felicity Maldonado A.P.R.N. for Jeannie Wong/jorge luis TD: 03/14/2017 06:27 JOB #: [id number] Unit #: [id number] #: [id number] Patient: LINDAARCENIO Brian HISTORY AND PHYSICAL Page 1 of 1 X FELICITY ESQUEDA APRN HISTORY AND PHYSICAL
--- NOTE | ~2017-03-12 | EKG ---
PATIENT: ARCENIO MCKEON UNIT #: [id number] Ventricular Rate: 81 BPM Atrial Rate: 81 BPM P-R Interval: 210 ms QRS Duration: 114 ms Q-T Interval: 416 ms QTC Calculation(Bezet): 483 ms P [place]: 72 degrees Calculated R [place]: -52 degrees Calculated T [place]: 36 degrees Diagnosis Line: Sinus rhythm with first degree AV block Diagnosis Line: Left anterior fascicular block Diagnosis Line: Abnormal ECG Diagnosis Line: When compared with ECG of 30-JAN-2017 14:28, Diagnosis Line: No significant change was found Diagnosis Line: Confirmed by SHAYY BELTRE MD ([id number]) on Diagnosis Line: 03/12/2017 10:57:16 PM INTERPRETING MD: CARYN
[~2017-03-12 17:41] MED LIST changes: +ACETAMINOPHEN325 MG PO; +ARTIFICIAL TEAR15 M9 OD; +BENZONATATE200 M1 PO; +DOCUSATE SODIU100 MG PO; +HYDRALAZINE HCL25 MG PO; +IPRAT-ALBUT 0.5-3 ML INH; +KLOR-CON SPRIN10 MEQ PO; +MELATONIN3 MG PO; +NYSTATIN1 EAC1 TOP; +ONDANSETRON HCL4 M1 PO; +PATADAY2.5 ML OU; +SENNOSIDES-DOC1 EACH PO; +TIZANIDINE HCL4 M1 PO; +VITAMIN C500 MG PO
[2017-03-12 19:35] LABS: BASOPHIL# 0.1 X10e3 (0-0.3); BASOPHIL% 0.6 % (0-2.5); EOSINOPHIL# 0.4 X10e3 (0-0.7); HEMATOCRIT 34.7 % (35.0-45.0); HEMOGLOBIN 11.7 gm/dL (12.0-16.0); LYMPHOCYTE# 1.2 X10e3 (1.0-3.5); LYMPHOCYTE% 12.7 % (17.0-45.0); MEAN CELL VOLUME 103.8 FL (83-96); MEAN CORPUSCULAR HGB CONC 33.7 g/dL (30-36); MEAN PLATELET VOLUME 7.5 FL (6.5-11.5); MONOCYTE# 0.4 X10e3 (0-1.0); MONOCYTE% 4.6 % (3.0-12.0); NEUTROPHIL# 7.4 X10e3 (1.5-7.1); NEUTROPHIL% 78.1 % (40-75); PLATELET COUNT 271 X10e3 (140-420); RED BLOOD COUNT 3.35 X10e (3.90-5.30); RED CELL DISTRIBUTION WIDTH 15.1 % (11.0-15.5); WHITE BLOOD COUNT 9.4 X10e3 (4.0-10.5)
[2017-03-12 19:37] LABS: DIFF IND NO
[2017-03-12 19:58] LABS: BUN/CREATININE RATIO 17.22; CALCIUM SERUM 9.3 mg/dL (8.4-10.2); CREATININE SERUM 1.8 mg/dL (0.6-1.4); GLOM FILT RATE Estimated 27.1 mL/min (>60); POTASSIUM 4.2 mmol/L (3.5-5.1)
[2017-03-12 21:18] LABS: POC - CKMB 1.9 ng/mL (0.0-7.9); POC - TROPONIN <0.05 ng/mL (<=0.05)
[2017-03-13 03:53] LABS: CK TOTAL 14 IU/L (26-140)
[2017-03-13 09:48] LABS: CK TOTAL 11 IU/L (26-140)
[2017-03-13 16:54] LABS: CK TOTAL 14 IU/L (26-140)
== END 2017-03-13 17:14 ==
LOC: CED 17:41 → CEDOF 22:30 → CED 22:35 → CEDOF 22:35 → C5B 22:35 → CEDOF 03-13 01:02 → C5B 03-13 16:13
PROVIDERS: Emergency Medicine; Internal Medicine Advanced Heart Failure and Transplant Cardiology
DX: R07.9 Chest pain, unspecified (principal); I11.0 Hypertensive heart disease with heart failure; I50.9 Heart failure, unspecified; I48.91 Unspecified atrial fibrillation; Z79.01 Long term (current) use of anticoagulants; I08.1 Rheumatic disorders of both mitral and tricuspid valves; J44.9 Chronic obstructive pulmonary disease, unspecified; E11.9 Type 2 diabetes mellitus without complications; I49.5 Sick sinus syndrome; Z95.0 Presence of cardiac pacemaker; E66.01 Morbid (severe) obesity due to excess calories; Z68.43 Body mass index [BMI] 50.0-59.9, adult; K21.9 Gastro-esophageal reflux disease without esophagitis; F41.9 Anxiety disorder, unspecified; G47.30 Sleep apnea, unspecified; D64.9 Anemia, unspecified; Z86.711 Personal history of pulmonary embolism; Z82.49 Family history of ischemic heart disease and other diseases of the circulatory system; Z82.3 Family history of stroke; Z83.3 Family history of diabetes mellitus; Z80.3 Family history of malignant neoplasm of breast
CPT/HCPCS: 36415; 71010; 80048; 82550; 82553; 82947; 84484; 85025; 93005; 93306; 94760; 99285; G0378